=== PATIENT | female | born 2000 | race Caucasian/White ===

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

== ENCOUNTER → 2023-12-12 | Outpatient (CLI) | payer BC ==
[2023-12-13 14:19] LABS: Pineapple IgE <0.10 kU/L (<0.10); Pineapple IgE Class CLASS 0
== END | disposition home or self-care (01) ==
LOC: LABWHC1 16:11
PROVIDERS: ATTEND Internal Medicine
DX: T78.3XXA Angioneurotic edema, initial encounter (principal)
CPT/HCPCS: 36415; 86003

== ENCOUNTER → 2024-12-09 | Outpatient (CLI) | payer BC ==
--- NOTE | 2024-12-09 15:19 | USB ---
Reason for Exam: Clinical finding. Technique: Method: Targeted. Findings: The upper outer quadrant of the right breast, the area of palpable concern of the right breast, the axilla of the right breast and the retroareolar of the right breast were scanned. Technique utilized:US breast limited RT Image; Ultrasound imaging of: Area of concern, retroareolar region and axilla. In the area of palpable abnormality: * Right breast 11:00 2 cm nipple is a hypoechoic oval mass measuring 10 x 5 x 9 mm. * Right breast 12:00 2 cm nipple is a hypoechoic oval mass measuring 16 x 10 x 20 mm. Both of these hypoechoic masses are favored to represent benign fibroadenomas given the patient's age. Overall Assessment: Benign, BI-RAD 2 Management: Diagnostic Breast Ultrasound of the right breast in 6 months. A clinical breast exam by your physician is recommended on an annual basis and results should be correlated with mammographic findings. This exam should not preclude additional follow-up of suspicious palpable abnormalities. Results were given to the patient verbally at the time of exam. [facility], , 12/09/2024 3:16 PM. Electronically signed and approved by: Maged Benito DO
== END | disposition home or self-care (01) ==
LOC: RADUSWWP 14:52
PROVIDERS: ATTEND Family Medicine
DX: N63.10 Unspecified lump in the right breast, unspecified quadrant (principal)